=== PATIENT | male | born 1955 | race Caucasian/White ===

== ENCOUNTER → 2019-05-29 11:03 | Outpatient (CLI) | payer OTHER, SELFPAY ==
[2019-05-29 11:25] LABS: Bacteria Urine None Seen; RBC Urine None Seen (0-5/HPF)
[2019-05-29 12:26] LABS: Add Manual Diff / Slide Review NO; Basophils Absolute Auto 0 /uL (0-100); Basophils Percent Auto 0.8 % (0-2); Eosinophils Absolute Auto 200 /uL (0-450); Eosinophils Percent Auto 2.7 % (2-4); Hematocrit 45.9 % (41-53); Lymphocytes Absolute Auto 1400 /uL (1100-4500); Lymphocytes Percent Auto 24.9 % (25-40); Mean Corpuscular HGB Conc 34.9 % (30-36); Mean Corpuscular Hemoglobin 32.4 PG (26-34); Mean Corpuscular Volume 92.7 fL (80-100); Monocytes Absolute Auto 300 /uL (0-900); Monocytes Percent Auto 5.4 % (3-14); Neutrophils Absolute Auto 3800 /uL (1500-7000); Neutrophils Percent Auto 66.2 % (50-75); Platelet Count 305 X10^3/uL (150-400); Red Blood Cell Count 4.95 X10^6/uL (4.5-5.9); Red Cell Distribution Width 12.1 % (11.6-14.8); White Blood Cell Count 5.8 X10^3/uL (4.5-11.0)
[2019-05-29 12:31] LABS: Hemoglobin A1C% w Est Avg Glu 4.6 % (4.0-6.0)
[2019-05-29 12:32] LABS: Prothrombin Time 10.9 SECONDS (10.1-12.7)
[2019-05-29 12:35] LABS: PTT Partial Thromboplastin Tim 32 SECONDS (26.4-36.2)
[2019-05-29 12:57] LABS: Alanine Aminotransferase 21 IU/L (21-72); Albumin 4.4 g/dL (3.5-5.0); Albumin Globulin Ratio 1.6 (1.0-2.8); Alkaline Phosphatase 105 U/L (38-126); Aspartate Aminotransferase 27 IU/L (17-59); BUN Creatinine Ratio 26.7 (6-22); Bilirubin Total 0.7 mg/dL (0.2-1.3); Blood Urea Nitrogen 16 mg/dL (9-20); Calcium 9.3 mg/dL (8.4-10.2); Carbon Dioxide 26 mmol/L (22-32); Chloride 101 mmol/L (98-107); Estimated Glomerular Filt Rate > 60.0 mL/min (>60); Globulin 2.7 g/dL (1.7-4.1); Glucose 139 mg/dL (80-110); HEMOLYSIS 17 (0-50); Potassium 4.7 mmol/L (3.4-5.1); Sodium 139 mmol/L (137-145); Total Protein 7.1 g/dL (6.3-8.2)
[2019-05-29 13:32] LABS: Appearance Urine UA CLEAR; Bilirubin Urine UA NEGATIVE (NEGATIVE); Color Urine UA YELLOW; Glucose Urine UA NEGATIVE (Negative); Ketones Urine UA NEGATIVE (NEGATIVE); Leukocyte Esterase Urine UA NEGATIVE (NEGATIVE); Nitrite Urine UA NEGATIVE (Negative); Occult Blood Urine UA NEGATIVE (Negative); Protein Urine UA NEGATIVE (Negative); Urobilinogen Urine UA 0.2 E.U./dL (0.2); pH Urine UA 5.5 (4.5-8.0)
[2019-05-29 13:49] LABS: Mucus Urine 1+ (Negative); Squamous Epithelial Cell Urine 0-1 /HPF (0-5/HPF); WBC Urine 0-1/HPF (0-5/HPF)
== END ==
PROVIDERS: Family Provider Urology; Visit Provider Internal Medicine
DX: C61 Malignant neoplasm of prostate (principal)
CPT/HCPCS: 36415; 80053; 81001; 83036; 85025; 85610; 85730; 87086

== ENCOUNTER → 2019-12-02 14:41 | Outpatient (ROUT) | payer OTHER, SELFPAY ==
[2019-12-02 14:54] LABS: Add Manual Diff / Slide Review NO; Basophils Absolute Auto 0 /uL (0-100); Basophils Percent Auto 0.9 % (0-2); Eosinophils Absolute Auto 500 /uL (0-450); Eosinophils Percent Auto 9.7 % (2-4); Hematocrit 43.6 % (41-53); Hemoglobin 15.2 g/dL (13.5-17.5); Lymphocytes Absolute Auto 1700 /uL (1100-4500); Lymphocytes Percent Auto 34.6 % (25-40); Mean Corpuscular HGB Conc 34.8 % (30-36); Mean Corpuscular Hemoglobin 32.1 PG (26-34); Mean Corpuscular Volume 92.3 fL (80-100); Monocytes Absolute Auto 300 /uL (0-900); Monocytes Percent Auto 7.1 % (3-14); Neutrophils Absolute Auto 2300 /uL (1500-7000); Neutrophils Percent Auto 47.7 % (50-75); Platelet Count 304 X10^3/uL (150-400); Red Blood Cell Count 4.72 X10^6/uL (4.5-5.9); Red Cell Distribution Width 12.5 % (11.6-14.8); White Blood Cell Count 4.8 X10^3/uL (4.5-11.0)
[2019-12-02 15:08] LABS: Alanine Aminotransferase 17 IU/L (<50); Alkaline Phosphatase 109 U/L (38-126); Aspartate Aminotransferase 24 IU/L (17-59); BUN Creatinine Ratio 25.7 (6-22); Bilirubin Total 0.5 mg/dL (0.2-1.3); Blood Urea Nitrogen 18 mg/dL (9-20); Calcium 8.9 mg/dL (8.4-10.2); Carbon Dioxide 24 mmol/L (22-32); Chloride 107 mmol/L (98-107); Estimated Glomerular Filt Rate > 60.0 mL/min (>60); Glucose 132 mg/dL (80-110); HEMOLYSIS < 15 (0-50); Lipase 64 U/L (23-300); Potassium 4.2 mmol/L (3.4-5.1); Sodium 139 mmol/L (137-145)
== END ==
PROVIDERS: Family Provider Urology; Visit Provider Internal Medicine
DX: R10.11 Right upper quadrant pain (principal)
CPT/HCPCS: 80048; 82247; 83690; 84075; 84450; 84460; 85025

== ENCOUNTER → 2019-12-04 15:02 | Outpatient (CLI) | payer OTHER, SELFPAY ==
--- NOTE | 2019-12-04 | DI.US.S_ITS ---
PROCEDURE: US ABDOMEN LIMITED INDICATIONS: RUQ PAIN TECHNIQUE: Real-time focused scanning was performed of the abdomen, with image documentation. COMPARISON: None. FINDINGS: Liver is grossly unremarkable and measures 16.1 cm in length. There is diffusely echogenic appearance. Gallbladder unremarkable. No sonographic Marcano sign. No intra-or extrabiliary ductal dilatation. The pancreas is sonographically unremarkable IMPRESSION: Coarse echogenic liver suggesting diffuse hepatocellular disease/fatty infiltration. Please correlate with LFTs. Normal appearance of the gallbladder Dictated by: Aashish Mai M.D. on 12/04/2019 at 16:48 Approved by: Aashish Mai M.D. on 12/04/2019 at 16:49
== END ==
PROVIDERS: Family Provider Urology; PCP Internal Medicine; Referring Provider Internal Medicine; Visit Provider Internal Medicine
DX: R10.11 Right upper quadrant pain (principal)
CPT/HCPCS: 76705

== ENCOUNTER → 2020-03-04 11:28 | Outpatient (CLI) | payer OTHER, SELFPAY ==
--- NOTE | 2020-03-04 | DI.RAD.S_ITS ---
PROCEDURE: XR LUMBAR SPINE 2-3V INDICATIONS: Lumbago with sciatica, right side TECHNIQUE: 3 views of the lumbar spine were acquired. COMPARISON: [facility], CT, ABDOMEN/PELVIS WITH CONTRAST, 09/14/2015, 15:21. FINDINGS: Bones: 5 [id number] vertebrae are present. There is normal bony alignment. No vertebral body compression fractures. No suspicious bony lesions. Note is made of moderately severe to severe degenerative disc disease from L2-S1, with most pronounced disc height reduction and endplate sclerosis at L3-4 and L4-5. Facet osteoarthritis from L3-S1 become progressively more prominent to the degree that significant spinal and foraminal stenosis would be expected bilaterally in this patient. Soft tissues: Overlying bowel gas pattern is normal. No suspicious soft tissue calcifications. IMPRESSION: No trauma found. Severe degenerative disc disease and facet osteoarthritis from L2 through S1 overall. Multilevel spinal and foraminal stenosis would be expected. Dictated by: Fritz Damon M.D. on 03/04/2020 at 16:17 Approved by: Fritz Damon M.D. on 03/04/2020 at 16:19
== END ==
PROVIDERS: Family Provider Urology; PCP Internal Medicine; Referring Provider Student in an Organized Health Care Education/Training Program; Visit Provider Student in an Organized Health Care Education/Training Program
DX: M51.16 Intervertebral disc disorders with radiculopathy, lumbar region (principal); M51.17 Intervertebral disc disorders with radiculopathy, lumbosacral region; M47.26 Other spondylosis with radiculopathy, lumbar region; M47.27 Other spondylosis with radiculopathy, lumbosacral region
CPT/HCPCS: 72100

== ENCOUNTER → 2020-11-08 15:30 | Outpatient (CLI) | payer OTHER, SELFPAY ==
[2020-11-08 16:36] LABS: COVID19 -Nasal RAPID Negative (Negative)
== END ==
PROVIDERS: Family Provider Urology; PCP Internal Medicine; Visit Provider Physical Medicine & Rehabilitation
DX: Z20.822 Contact with and (suspected) exposure to COVID-19 (principal)
CPT/HCPCS: 87635; C9803

== ENCOUNTER 2020-11-09 14:10 | Outpatient (CLI) | payer OTHER, SELFPAY ==
[2020-11-09] VITALS (9 sets, daily range): BP systolic 125–185; BP diastolic 66–105; PULSE 64–69; RESP 12–23; TEMP 36.5–36.9; O2SAT 97–99
--- NOTE | 2020-11-09 14:13 | DI.RAD.S_ITS ---
PROCEDURE: PAIN L INTERLAMINAR/CAUDAL INJ INDICATIONS: SPONDYLOSIS COMPARISON: [facility], CR, XR LUMBAR SPINE 2-3V, 03/04/2020, 11:36 FINDINGS: Fluoroscopic spot filming was performed to verify placement of a spinal needle at the L5-S1 level, as labeled on the films. Appropriate location of the needle tip was confirmed by injection of iodinated contrast. IMPRESSION: No significant intraprocedural abnormality. Dictated by: Domenic Jung M.D. on 11/09/2020 at 14:19 Approved by: Domenic Jung M.D. on 11/09/2020 at 14:19
[2020-11-09] MEDS: MIDAZOLAM 5 MG/5 ML VIAL IV (14:51)
[2020-11-09] MEDS: fentaNYL 100 MCG/2 ML INJ 50 MCG IV (14:57)
[2020-11-09] MEDS: IOPAMIDOL 15 ML VIAL 3 ML INJ (14:59)
[2020-11-09] MEDS: BUPIVACAINE 0.25% (PF) VIAL 2 ML INJ (14:59)
[2020-11-09] MEDS: DEXAMETHASONE 10 MG/ML VIAL 20 MG INJ (14:59)
[2020-11-09] MEDS: BETAMETHASONE 30 MG/5 ML MDV 6 MG INJ (15:00)
--- NOTE | 2020-11-09 15:06 | PM.PROC.IR.1 ---
Date/Time/Diagnoses Date of procedure: 11/09/20 Time of procedure: 15:06 Pre-procedure diagnosis: 1. HNP WITH RADICULAR FEATURES, 2. MULTILEVEL CENTRAL STENOSIS, Post-procedure diagnosis: same Procedure Notes Procedure: 1. FLUOROSCOPICALLY GUIDED CONTRAST CONTROLLED INTERLAMINAR EPIDURAL STEROID INJECTION - PARA RIGHT L5/S1 Indications: Jaspreet is referred by Dr. Ponce for treatment of Bilateral Foraminal Stenosis L>R LE symptoms. Physician: Jaspreet Manrique Total Fluoroscopy time (seconds): 5 Total sedation minutes: 12 Complications: none Procedure in detail & Post-procedure care: FINDINGS Multilevel Central Spinal Stenosis with Nerve Root Compression DESCRIPTION OF PROCEDURE Fluoroscopically guided, contrast-controlled L5/S1 translaminar epidural steroid injection. Following review of allergy and review of potential side effects and complications, including, but not necessarily limited to, infection, allergic reaction, local tissue breakdown, temporary as well as permanent nerve injury, paralysis, stroke and possible , the patient indicated that the patient understood and agreed to proceed. An informed consent document was signed by the patient, witnessed by a nurse, and placed in the patient's chart. Additionally, other treatment options including modalities, medications, and physical therapy were reviewed with the patient. After review of previous anaesthesic history and IV conscious sedation the patient was deemed safe to proceed with today?s procedure with IV conscious sedation as ASA class II designation. Safety time-out was performed to confirm patient ID, procedure to be performed and site of procedure. IV sedation was accomplished with a combination of 2mg of Versed and 50mcg of Fentanyl administered by the RN after DO order, titrated to patient comfort during the course of the procedure while the patient remained responsive to all verbal commands. In the prone position, following sterile prep and drape of the lumbar region, the L5/S1 translaminar space was identified fluoroscopically. The skin was anesthetized via a 25-gauge, 1.5-inch needle with 1% lidocaine solution. At this point, a 22-gauge short bevel spinal needle was atraumatically introduced and advanced under fluoroscopic guidance into the region of the L5/S1 translaminar space. Depth was confirmed on lateral view. Radiological data, including multiple fluoroscopic views of the lumbar spine, reveal a spinal needle at the L5/S1 translaminar space. Lateral views then show placement of the needle in the epidural space. Subsequent views show contrast material flowing superiorly and inferiorly in the epidural space. No vascular or intrathecal uptake is observed. At this point, using loss of resistance technique with saline and air, the epidural space was entered. This was confirmed following negative aspiration with injection of approximately 1.5cc of Isovue 200, showing excellent epidural flow without vascular or intrathecal uptake. At this point, 1 cc of 1% lidocaine solution combined with 3cc or 20mg of dexamethasone and 6mg of betamethasone was injected without incident. The patent tolerated the procedure without signs of symptoms of complications prior to transfer to the recovery area for further monitoring. The patient was then transferred to the recovery area where they were observed for an appropriate period of time after the injection. The patient reported a VAS score of 6 prior to the procedure and a post-procedure VAS of 0. POST OP INSTRUCTIONS The patient was provided a Pain Log to continue to record their response to the target-specific procedure prior to follow-up visit with their referring physician. Additionally, specific post-injection care instructions and a contact number to our office were provided if concerns arise regarding possible complications associated with the procedure are suspected.
== END 2020-11-09 15:27 | disposition home or self-care (01) ==
LOC: RAD 14:13
PROVIDERS: Family Provider Urology; PCP Internal Medicine; Referring Provider Physical Medicine & Rehabilitation; Visit Provider Physical Medicine & Rehabilitation
DX: M51.17 Intervertebral disc disorders with radiculopathy, lumbosacral region (principal); M48.07 Spinal stenosis, lumbosacral region
CPT/HCPCS: 62323; 99152; J0702; J1100; J2250; J3010

== ENCOUNTER → 2021-01-24 15:26 | Outpatient (CLI) | payer OTHER, SELFPAY ==
[2021-01-24 16:59] LABS: COVID19 -Nasal RAPID Negative (Negative)
== END ==
PROVIDERS: Family Provider Urology; PCP Internal Medicine; Visit Provider Physical Medicine & Rehabilitation
DX: Z20.822 Contact with and (suspected) exposure to COVID-19 (principal)
CPT/HCPCS: 87635; C9803

== ENCOUNTER 2021-01-25 13:04 | Outpatient (CLI) | payer OTHER, SELFPAY ==
[2021-01-25] VITALS (8 sets, daily range): BP systolic 139–166; BP diastolic 75–98; PULSE 67–73; RESP 16–23; TEMP 36.7; O2SAT 92–98
--- NOTE | 2021-01-25 13:06 | DI.RAD.S_ITS ---
PROCEDURE: PAIN L INTERLAMINAR/CAUDAL INJ INDICATIONS: SPONDYLOSIS COMPARISON: [facility], XA, PAIN L INTERLAMINAR/CAUDAL INJ, 11/09/2020, 14:57. FINDINGS: Fluoroscopic spot filming was performed to verify placement of a spinal needle at the L1-L2 level, as labeled on the films. Appropriate location of the needle tip was confirmed by injection of iodinated contrast. IMPRESSION: Intraprocedural examination within normal limits. Dictated by: Domenic Jung M.D. on 01/25/2021 at 13:30 Approved by: Domenic Jung M.D. on 01/25/2021 at 13:30
[2021-01-25] MEDS: MIDAZOLAM 5 MG/5 ML VIAL IV (13:46)
[2021-01-25] MEDS: fentaNYL 100 MCG/2 ML INJ 50 MCG IV (13:46)
[2021-01-25] MEDS: methylPREDNISolone acetate 80 MG/ML VIAL INJ (13:52)
[2021-01-25] MEDS: BUPIVACAINE 0.25% (PF) VIAL 2 ML INJ (13:52)
[2021-01-25] MEDS: IOPAMIDOL 15 ML VIAL 3 ML INJ (13:52)
[2021-01-25] MEDS: DEXAMETHASONE 10 MG/ML VIAL 20 MG INJ (13:53)
--- NOTE | 2021-01-25 13:59 | P.PCN_ITS ---
Date/Time/Diagnoses Date of procedure: 01/25/21 Time of procedure: 13:59 Pre-procedure diagnosis: 1. HNP WITH RADICULAR FEATURES, 2. MULTILEVEL CENTRAL STENOSIS, Post-procedure diagnosis: same Procedure Notes Procedure: 1. FLUOROSCOPICALLY GUIDED CONTRAST CONTROLLED INTERLAMINAR EPIDURAL STEROID INJECTION - L1/2 Indications: Jaspreet is referred by Dr. Ponce for treatment of Bilateral Foraminal Stenosis L>R LE symptoms. Physician: Jasperet Manrique Total Fluoroscopy time (seconds): 6 Total sedation minutes: 9 Complications: none Procedure in detail & Post-procedure care: FINDINGS Multilevel Central Spinal Stenosis with Nerve Root Compression DESCRIPTION OF PROCEDURE Fluoroscopically guided, contrast-controlled L1/2 translaminar epidural steroid injection. Following review of allergy and review of potential side effects and complications, including, but not necessarily limited to, infection, allergic reaction, local tissue breakdown, temporary as well as permanent nerve injury, paralysis, stroke and possible , the patient indicated that the patient understood and agreed to proceed. An informed consent document was signed by the patient, witnessed by a nurse, and placed in the patient's chart. Additionally, other treatment options including modalities, medications, and physical therapy were reviewed with the patient. After review of previous anaesthesic history and IV conscious sedation the patient was deemed safe to proceed with todays procedure with IV conscious sedation as ASA class II designation. Safety time-out was performed to confirm patient ID, procedure to be performed and site of procedure. IV sedation was accomplished with a combination of 2mg of Versed and 50mcg of Fentanyl was administered by the RN after DO order, titrated to patient comfort during the course of the procedure while the patient remained responsive to all verbal commands In the prone position, following sterile prep and drape of the lumbar region, the L1/2 translaminar space was identified fluoroscopically. The skin was anesthetized via a 25-gauge, 1.5-inch needle with 1% lidocaine solution. At this point, a 22-gauge short bevel spinal needle was atraumatically introduced and advanced under fluoroscopic guidance into the region of the L1/2 translaminar space. Depth was confirmed on lateral view. Radiological data, including multiple fluoroscopic views of the lumbar spine, reveal a spinal needle at the L1/2 translaminar space. Lateral views then show placement of the needle in the epidural space. Subsequent views show contrast material flowing superiorly and inferiorly in the epidural space. No vascular or intrathecal uptake is observed. At this point, using loss of resistance technique with saline and air, the epidural space was entered. This was confirmed following negative aspiration with injection of approximately 1.5 cc of Isovue 200, showing excellent epidural flow without vascular or intrathecal uptake. At this point, 1 cc of 1% lidocaine solution combined with 3cc or 20mg of dexamethasone and 80mg of depo- medrol was injected without incident. The patient tolerated the procedure well without signs or symptoms of complications prior to transfer to the recovery area continued monitoring without incident. The patient was then transferred to the recovery area where they were observed for an appropriate period of time after the injection. The patient reported a VAS score of 6 prior to the procedure and a post- procedure VAS of 0. POST OP INSTRUCTIONS The patient was provided a Pain Log to continue to record their response to the target-specific procedure prior to follow-up visit with their referring physician. Additionally, specific post-injection care instructions and a contact number to our office were provided if concerns arise regarding possible complications associated with the procedure are suspected.
== END 2021-01-25 14:18 | disposition home or self-care (01) ==
LOC: RAD 13:06
PROVIDERS: Family Provider Urology; PCP Internal Medicine; Referring Provider Physical Medicine & Rehabilitation; Visit Provider Physical Medicine & Rehabilitation
DX: M51.16 Intervertebral disc disorders with radiculopathy, lumbar region (principal); M48.062 Spinal stenosis, lumbar region with neurogenic claudication
CPT/HCPCS: 62323; J0702; J1040; J1100; J2250; J3010

== ENCOUNTER → 2022-01-30 14:31 | Outpatient (CLI) | payer OTHER, SELFPAY ==
[2022-01-30 16:32] LABS: Hematocrit 44.7 % (41-53); Hemoglobin 15.1 g/dL (13.5-17.5); Mean Corpuscular HGB Conc 33.7 % (30-36); Mean Corpuscular Volume 88.9 fL (80-100); Platelet Count 321 X10^3/uL (150-400); Red Blood Cell Count 5.03 X10^6/uL (4.5-5.9); Red Cell Distribution Width 14.6 % (11.6-14.8); White Blood Cell Count 5.9 X10^3/uL (4.5-11.0)
[2022-01-30 17:07] LABS: Alanine Aminotransferase 27 IU/L (<50); Albumin 4.7 g/dL (3.5-5.0); Albumin Globulin Ratio 1.7 (1.0-2.8); Alkaline Phosphatase 106 U/L (38-126); Aspartate Aminotransferase 33 IU/L (17-59); BUN Creatinine Ratio 23.2 (6-22); Bilirubin Total 0.4 mg/dL (0.2-1.3); Blood Urea Nitrogen 16 mg/dL (9-20); Calcium 9.1 mg/dL (8.4-10.2); Carbon Dioxide 26 mmol/L (22-32); Chloride 106 mmol/L (98-107); Cholesterol 141 mg/dL (140-199); Estimated Glomerular Filt Rate > 60 mL/min (>60); Globulin 2.7 g/dL (1.7-4.1); Glucose 88 mg/dL (80-110); HDL Cholesterol 43 mg/dL (40-60); HEMOLYSIS < 15 (0-50); LDL Cholesterol Calculated 58 mg/dL (<100); Potassium 4.5 mmol/L (3.4-5.1); Sodium 142 mmol/L (137-145); Total Protein 7.4 g/dL (6.3-8.2); Triglycerides 200 mg/dL (35-150)
[2022-01-30 17:35] LABS: TSH w/ Reflex to FT4 2.91 uIU/mL (0.47-4.68)
[2022-01-30 17:38] LABS: Prostate Specific Antigen < 0.064 ng/mL (0.10-4.00)
== END ==
PROVIDERS: Family Provider Urology; PCP Internal Medicine; Referring Provider Internal Medicine; Visit Provider Internal Medicine
DX: E03.9 Hypothyroidism, unspecified (principal); E78.2 Mixed hyperlipidemia; I10 Essential (primary) hypertension; Z86.010 Personal history of colon polyps
CPT/HCPCS: 36415; 80053; 80061; 84153; 84443; 85027

== ENCOUNTER → 2022-07-05 11:09 | Outpatient (CLI) | payer OTHER, SELFPAY ==
[2022-07-05 13:50] LABS: COVID19 -Nasal RAPID Negative (Negative)
== END ==
PROVIDERS: Family Provider Urology; PCP Internal Medicine; Visit Provider Surgery
DX: Z01.812 Encounter for preprocedural laboratory examination (principal); Z20.822 Contact with and (suspected) exposure to COVID-19
CPT/HCPCS: 87635; C9803

== ENCOUNTER 2022-07-06 12:39 | Day surgery (SDC) | payer OTHER, SELFPAY ==
--- NOTE | 2022-07-06 | PATH_ITS ---
[facility] Accession Number: [id number] . 01 Material submitted: . PART A: colon - ASCENDING COLON POLYP PART B: colon - SIGMOID COLON POLYP . 01 Diagnosis: A. Ascending Colon Polyp, Biopsy: Tubular adenoma. . B. Sigmoid Colon Polyp, Biopsy: Tubular adenoma. MRV 07/12/2022 1314 Local . 01 Electronically signed: . Massiel Knight MD, Pathologist NPI- [id number] . 01 Gross description: . Part A: ASCENDING COLON POLYP: Received in formalin is 1 fragment(s) of bonilla, soft tissue measuring 0.1 x 0.1 x 0.1 cm submitted entirely in 1 cassette(s) Part B: SIGMOID COLON POLYP: Received in formalin is 1 fragment(s) of bonilla, soft tissue measuring 0.2 x 0.2 x 0.2 cm submitted entirely in 1 cassette(s) /RAHDA 07/11/2022 1855 Local . 01 Pathologist provided ICD-10: D12.2, D12.5 . 01 CPT . 666346, 737354 Specimen Comment: A courtesy copy of this report has been sent to [phone] Performed at: 01 [facility] [address] [place] [address] [address] [facility], [place], [place] [id number] MD Charli Hand MD Phone: [phone]
[2022-07-06] MEDS: LACTATED RINGERS 1,000 ML 200 ML IV (13:00)
[2022-07-06 13:03] VITALS: BP 167/102; PULSE 93; RESP 16; TEMP 36.6; O2SAT 99; BMI 73.7
--- NOTE | 2022-07-06 13:43 | PM.HP.1 ---
History of Present Illness History of Present Illness Date Patient Seen: 07/06/22 Time Patient Seen: 13:43 Chief complaint: SCREENING COLONOSCOPY Narrative: Gautam is here for his colonoscopy. He believes his last 1 was greater than 5 years ago and polyps were removed. He does not have a known family history of colon cancer. Patient History Medical History (Updated 01/30/22 @ 14:02 by Jose Ponce MD) Acquired hypothyroidism Chronic back pain Essential hypertension Facet arthropathy, lumbar Herniated nucleus pulposus, lumbar History of colon polyps History of prostate cancer Lumbar radiculopathy, acute Lumbar stenosis with neurogenic claudication Mixed hyperlipidemia Obesity (BMI 30.0-34.9) Scoliosis Surgical History H/O prostatectomy Family & Social History Family History Mother Degenerative disc disease Social History: household members spouse Tobacco & Substance use: Smoking Status Never smoker alcohol intake current alcohol intake frequency a few times a week Meds Home Medications and Allergies Home Medications Medication Instructions Recorded Confirmed Type metoprolol tartrate 50 mg tablet 50 mg PO BID 04/07/20 01/30/22 History acetaminophen 500 mg tablet 500 mg PO Q6H PRN Pain (Scale 03/18/21 07/06/22 History (Tylenol Extra Strength) Score 1-3) levothyroxine 50 mcg tablet 50 mcg PO DAILY #90 tabs 12/30/21 01/30/22 Rx (Synthroid) lisinopril 20 1 tab PO DAILY #90 tabs 01/09/22 01/30/22 Rx mg-hydrochlorothiazide 12.5 mg tablet cyclobenzaprine 10 mg tablet 10 mg PO BID PRN muscle spasm #60 03/01/22 Rx tabs celecoxib 200 mg capsule 200 mg PO DAILY #90 caps 04/03/22 07/06/22 Rx rosuvastatin 10 mg tablet 10 mg PO DAILY #90 tabs 04/06/22 Rx sodium sul 1.479 gram-potas ch See Rx Instructions PO PER PKG DIR 06/09/22 Rx 0.188 gram-magnes sul 0.225 gram #24 tabs tablet (Sutab) Allergies Allergy/AdvReac Type Severity Reaction Status Date / Time No Known Drug Allergies Allergy Verified 07/06/22 13:00 Exam Vital Signs (past 8 hours): - 07/06/22 13:03 Temperature 97.8 F Pulse Rate 93 H Respiratory Rate 16 Blood Pressure 167/102 H Pulse Oximetry 99 Oxygen Delivery Method Room Air Oxygen Delivery Method Room Air Const General: healthy appearing Assessment & Plan Assessment and plan (1) History of colon polyps: Status: Acute Plan We reviewed the risks and benefits of colonoscopy for colon cancer screening and he would like to proceed. Time Spent With Patient Critical Care time: I spent a total of [] minutes of critical care time on this patient's care today; this time is exclusive of procedural time.
[2022-07-06] MEDS: MIDAZOLAM 5 MG/5 ML VIAL 7 MG IV (13:54)
[2022-07-06] MEDS: fentaNYL 100 MCG/2 ML INJ 150 MCG IV (13:54)
--- NOTE | 2022-07-06 14:20 | PM.OP.COLON ---
Operative Date/Time/Diagnoses Date of procedure: 07/06/22 Time of procedure: 14:20 Pre-op diagnosis: Colon cancer screening Post-op diagnosis: same Procedure & Clinicians Study performed: Colonoscopy Same procedure as scheduled: Yes Surgeon: Henrique Posadas Procedure Notes Procedure in detail: Surgeon: Henrique Posadas MD Procedure: The patient was brought to the endoscopy suite, placed in left lateral decubitus position. The patient was connected to monitoring devices. A time-out was performed. Sedation was administered. Once the patient was adequately sedated, a digital rectal exam was performed and was normal. There were some external hemorrhoids visible. The scope was then inserted and advanced to the cecum where the appendiceal orifice was identified and photographed. The scope was then slowly withdrawn over greater than 6 minutes. The mucosa was thoroughly inspected. There was a small 3 mm polyp in the ascending colon removed with cold forceps. There were scattered sigmoid diverticula. There was a 5 mm polyp in the sigmoid colon removed with cold forceps. The scope was retroflexed in the rectum. No abnormalities were noted. The scope was straightened and removed. The patient was awakened and brought to recovery. Versed: 7 mg Fentanyl: 150 mcg EBL: 5 mL Findings: 3 mm ascending colon polyp and 5 mm sigmoid colon polyp. Scattered sigmoid diverticulosis Scope withdrawal time: 18 Sedation minutes: 28 Post-procedure Disposition: PACU
[2022-07-06 14:22] VITALS: BP 147/86; PULSE 92; RESP 15; TEMP 37.2; O2SAT 96
[2022-07-06 14:31] VITALS: BP 148/95; PULSE 87; RESP 13; O2SAT 96
[2022-07-06 14:32] VITALS: BP 154/103; PULSE 83; RESP 16; O2SAT 97
[2022-07-06 14:37] VITALS: BP 146/96; PULSE 84; RESP 20; TEMP 37.2; O2SAT 97
[2022-07-06 14:40] VITALS: BP 155/99; PULSE 84; RESP 15; O2SAT 97
== END 2022-07-06 14:55 | disposition home or self-care (01) ==
PROVIDERS: Family Provider Urology; PCP Internal Medicine; Referring Provider Surgery; Visit Provider Surgery
PROC: 0DJD8ZZ Inspection of Lower Intestinal Tract, Via Natural or Artificial Opening Endoscopic (ICD-10-PCS; CPT 45378; principal; 2022-07-06 13:30)
DX: Z12.11 Encounter for screening for malignant neoplasm of colon (principal); Z86.010 Personal history of colon polyps; K57.30 Diverticulosis of large intestine without perforation or abscess without bleeding; D12.2 Benign neoplasm of ascending colon; D12.5 Benign neoplasm of sigmoid colon
CPT/HCPCS: 45380; 36415; 99152; 99153; J2250; J3010

== ENCOUNTER → 2022-11-09 16:27 | Outpatient (CLI) | payer OTHER, SELFPAY ==
--- NOTE | 2022-11-09 16:39 | DI.RAD.S_ITS ---
PROCEDURE: XR CERVICAL SPINE 2V OR 3V INDICATIONS: neck pain TECHNIQUE: 3 view(s) of the cervical spine were acquired. COMPARISON: None. FINDINGS: Bones: No fractures or dislocations to the T1 level. The lateral masses of C1 appear intact on the odontoid view. No suspicious bony lesions. Midcervical spine disc space narrowing and facet sclerosis. Normal bone mineralization present. Craniovertebral relationships normal. Soft tissues: No prevertebral soft tissue swelling. IMPRESSION: Multilevel degenerative disc disease and arthropathy in the mid cervical spine Approved by: Hussein Day M.D. on 11/09/2022 at 18:21
== END ==
PROVIDERS: Family Provider Urology; PCP Internal Medicine; Referring Provider Internal Medicine; Visit Provider Internal Medicine
DX: M47.812 Spondylosis without myelopathy or radiculopathy, cervical region (principal); M50.320 Other cervical disc degeneration, mid-cervical region, unspecified level
CPT/HCPCS: 72040

== ENCOUNTER → 2023-04-06 11:25 | Outpatient (CLI) | payer OTHER, SELFPAY ==
[2023-04-06 13:05] LABS: Prostate Specific Antigen < 0.064 ng/mL (0.10-4.00)
== END ==
PROVIDERS: Family Provider Urology; PCP Internal Medicine; Referring Provider Internal Medicine; Visit Provider Internal Medicine
DX: Z85.46 Personal history of malignant neoplasm of prostate (principal)
CPT/HCPCS: 36415; 84153

== ENCOUNTER → 2023-11-29 14:40 | Outpatient (CLI) | payer OTHER, SELFPAY ==
--- NOTE | 2023-11-29 14:41 | DI.RAD.S_ITS ---
PROCEDURE: XR KNEE RT 3V INDICATIONS: Right knee DJD TECHNIQUE: 3 views of the knee were acquired. COMPARISON: None. FINDINGS: Bones: No fractures or dislocations. Tricompartmental osteoarthritic changes with tricompartmental osteophytosis. Moderate to severe lateral tibial femoral compartment joint space narrowing. No suspicious bony lesions. Soft tissues: No joint effusion. No suspicious soft tissue calcifications. IMPRESSION: Moderate to severe osteoarthritic changes of the right knee. Dictated by: Sebas Burton M.D. on 11/29/2023 at 16:17 Approved by: Sebas Burton M.D. on 11/29/2023 at 16:18
== END ==
PROVIDERS: Family Provider Urology; PCP Internal Medicine; Referring Provider Physical Medicine & Rehabilitation; Visit Provider Physical Medicine & Rehabilitation
DX: M17.11 Unilateral primary osteoarthritis, right knee (principal)
CPT/HCPCS: 73562

== ENCOUNTER → 2024-02-05 14:11 | Outpatient (CLI) | payer OTHER, SELFPAY ==
[2024-02-05 15:58] LABS: Aspartate Aminotransferase 35 IU/L (17-59); BUN Creatinine Ratio 29.7 (6-22); Blood Urea Nitrogen 19 mg/dL (9-20); Calcium 8.9 mg/dL (8.4-10.2); Carbon Dioxide 26 mmol/L (22-32); Chloride 107 mmol/L (98-107); Cholesterol 139 mg/dL (140-199); Estimated Glomerular Filt Rate > 60 mL/min (>60); Glucose 94 mg/dL (80-110); HDL Cholesterol 46 mg/dL (40-60); HEMOLYSIS < 15 (0-50); LDL Cholesterol Calculated 35 mg/dL (<100); Sodium 139 mmol/L (137-145); Triglycerides 292 mg/dL (35-150)
[2024-02-05 16:31] LABS: Prostate Specific Antigen < 0.064 ng/mL (0.10-4.00)
[2024-02-05 16:42] LABS: TSH w/ Reflex to FT4 4.15 uIU/mL (0.47-4.68)
== END ==
PROVIDERS: Family Provider Urology; PCP Internal Medicine; Referring Provider Internal Medicine; Visit Provider Internal Medicine
DX: I10 Essential (primary) hypertension (principal); E03.9 Hypothyroidism, unspecified; E78.2 Mixed hyperlipidemia; Z85.46 Personal history of malignant neoplasm of prostate
CPT/HCPCS: 36415; 80048; 80061; 84153; 84443; 84450

== ENCOUNTER 2025-07-06 13:41 | Emergency (ER) | payer SELFPAY ==
[2025-07-06 14:12] VITALS: BP 181/87; PULSE 64; RESP 16; TEMP 36.8; O2SAT 97; BMI 32.5
== END 2025-07-06 14:46 | disposition left against medical advice (07) ==
PROVIDERS: Emergency Provider Emergency Medicine; Family Provider Urology; PCP Internal Medicine
CPT/HCPCS: 99281